=== PATIENT | female | born 1985 | race Caucasian/White ===

== ENCOUNTER 2017-05-02 16:39 | Inpatient (IN) ==
[2017-05-02 17:36] LABS: Basophils % 0.4 % (0.0-0.8); Eosinophils % 0.3 % (0.00-10.9); Hemoglobin 11.3 GM/DL (12.0-16.0); Immature Granulocytes % 0.3 %; Immature Granulocytes Absolute 0.02 #; Lymphocytes # 1.1 10*3/uL (1.4-4.0); Lymphocytes % 13.7 % (21.3-54.2); Mean Corpuscular HGB Conc 33.2 GM/DL (32-36); Mean Corpuscular Hemoglobin 29 PG (27-34); Mean Platelet Volume 8.8 FL (9.6-12.0); Monocytes # 0.7 10*3/uL (0.11-0.8); Neutrophils % 76.3 % (38.7-73.9); Platelet Count 192 T/CUMM (130-400); Red Blood Count 3.91 MC/CUMM (3.8-5.5); Red Cell Distribution Width 12.5 % (9.3-17.3); White Blood Count 7.9 T/CUMM (4-12)
[2017-05-02] MEDS ORDERED: ONDANSETRON 4 MG/2 ML VIAL IV STA ×2 (17:49→19:35)
[2017-05-02] MEDS ORDERED: MORPHINE 2 MG/1 ML SYRINGE IV STA ×2 (17:49→19:32)
[2017-05-02] MEDS ORDERED: MORPHINE 2 MG/1 ML SYRINGE ONE ×2 (17:50→19:18)
[2017-05-02] MEDS ORDERED: ONDANSETRON 4 MG/2 ML VIAL ONE ×2 (17:50→19:18)
[2017-05-02] MEDS ORDERED: MEPERIDINE 25 MG/1 ML VIAL IV STA ×2 (17:52→19:32)
[2017-05-02 17:53] LABS: INR 1.1; PT Patient Result 11.5 SECS; Partial Thromboplastin Time 26.8 SECS (0-40)
[2017-05-02] MEDS ORDERED: MEPERIDINE 25 MG/1 ML VIAL ONE ×2 (17:53→19:18)
[2017-05-02] MEDS ORDERED: SODIUM CHLORIDE 0.9% 1,000 ML IV STA (17:59)
[2017-05-02 18:00] LABS: Albumin 3.8 G/DL (3.4-5.0); Bilirubin,Total 0.6 MG/DL (0.2-1.0); Calcium 8.8 MG/DL (8.5-10.1); Magnesium 1.9 MG/DL (1.8-2.4); Osmolality,Calculated 278.3 MOS/KG (273-304); Potassium 2.8 MMOL/L (3.5-5.1); Total Protein 6.3 G/DL (6.4-8.3); Troponin I Only < 0.015 NG/ML (0.00-0.045)
[2017-05-02 18:46] LABS: Apearance,Urine Slightly Hazy (Clear); Bilirubin,Urine Negative (Negative); Blood, Urine Negative (Negative); Glucose,Urine (UA) Negative (Negative); Ketones,Urine 20 mg/dL (Negative); Mucus,Urine Many /LPF (Occasional); Nitrite,Urine Negative (Negative); Protein,Urine 30 MG/DL; RBC,Urine 3 /HPF (0-4); Squamous Epithelial Cell,Urine Occasional /HPF (0-10); Urine Color Amber (Yellow); Urine Specific Gravity 1.023 (1.001-1.035); WBC,Urine 4 /HPF (0-6)
[2017-05-02] MEDS ORDERED: diphenhydrAMINE 50 MG/1 ML VIAL ONE (19:27)
[2017-05-02] MEDS ORDERED: diphenhydrAMINE 50 MG/1 ML VIAL IV STA (19:33)
[2017-05-02] MEDS ORDERED: ADENOSINE 6 MG/2 ML VIAL ONE (19:47)
[2017-05-02] MEDS ORDERED: DIAZEPAM 10 MG/2 ML SYRINGE ONE (20:05)
[2017-05-02] MEDS ORDERED: DILTIAZEM 50 MG/10 ML VIAL IV STA (20:12)
[2017-05-02] MEDS ORDERED: DILTIAZEM 50 MG/10 ML VIAL IV ONE (20:14)
[2017-05-02] MEDS ORDERED: DILTIAZEM 100 MG VIAL.ADD IV ONE ×2 (20:14→20:28)
[2017-05-02] MEDS ORDERED: DILTIAZEM INJ 100 MG in SODIUM CHLORIDE 0.9% 100 ML IV SCH (20:30)
[2017-05-02 20:42] LABS: Barbiturates Screen,Urine Negative (Negative); Benzodiazepines Screen,Urine Negative (Negative); Cannabinoid Screen,Urine Positive (Negative); Opiate Screen,Urine Positive (Negative); Phencyclidine Screen,Urine Negative (Negative)
[2017-05-02] MEDS ORDERED: HYDROmorphone 2 MG/1 ML VIAL IV STA (21:01)
[2017-05-02] MEDS ORDERED: LORazepam 2 MG/1 ML VIAL IV STA (21:02)
[2017-05-02] MEDS ORDERED: LORazepam 2 MG/1 ML VIAL ONE (21:03)
[2017-05-02] MEDS ORDERED: HYDROmorphone 2 MG/1 ML VIAL ONE (21:03)
[2017-05-02] MEDS ORDERED: MIDAZOLAM 2 MG/2 ML VIAL IV STA (21:34)
[2017-05-02] MEDS ORDERED: MIDAZOLAM 2 MG/2 ML VIAL ONE (21:34)
[2017-05-02] MEDS ORDERED: LORazepam 2 MG/1 ML VIAL IV ONE (23:18)
[2017-05-02] MEDS ORDERED: LORazepam 2 MG/1 ML VIAL IV PRN (23:19)
[2017-05-03] MEDS ORDERED: SODIUM CHLORIDE 0.9% 1,000 ML IV SCH (00:30)
[2017-05-03] MEDS ORDERED: POTASSIUM CHLORIDE RIDER 10 MEQ in PREMIX 1 EACH IV PRN ×2 (00:32→14:38)
[2017-05-03] MEDS: LORazepam 2 MG/1 ML VIAL IV SCH ×2 (01:19→10:19)
[2017-05-03] MEDS: PANTOPRAZOLE 40 MG VIAL IV SCH (01:20)
[2017-05-03] MEDS: ONDANSETRON 4 MG/2 ML VIAL IV PRN ×2 (01:20→21:15)
[2017-05-03] MEDS: SODIUM CHLOR 0.9% KCL 40 MEQ 40 MEQ/1,000 ML BAG IV SCH ×3 (01:57→19:00)
[2017-05-03 04:42] LABS: Basophils % 0.3 % (0.0-0.8); Eosinophils % 0.5 % (0.00-10.9); Hematocrit 28.5 VOL% (35.7-47.0); Hemoglobin 9.6 GM/DL (12.0-16.0); Immature Granulocytes % 0.3 %; Immature Granulocytes Absolute 0.02 #; Lymphocytes # 1.3 10*3/uL (1.4-4.0); Lymphocytes % 21.5 % (21.3-54.2); Mean Corpuscular HGB Conc 33.7 GM/DL (32-36); Mean Corpuscular Hemoglobin 29 PG (27-34); Mean Corpuscular Volume 85.1 FL (87-102); Mean Platelet Volume 9.2 FL (9.6-12.0); Monocytes # 0.9 10*3/uL (0.11-0.8); Monocytes % 14.2 % (1.7-12.7); Neutrophils # 3.8 10*3/uL (1.4-7.4); Neutrophils % 63.2 % (38.7-73.9); Platelet Count 148 T/CUMM (130-400); Red Blood Count 3.35 MC/CUMM (3.8-5.5); Red Cell Distribution Width 12.6 % (9.3-17.3); White Blood Count 6.1 T/CUMM (4-12)
[2017-05-03 05:12] LABS: Albumin 3.1 G/DL (3.4-5.0); Bilirubin,Total 1.1 MG/DL (0.2-1.0); Calcium 8.4 MG/DL (8.5-10.1); Magnesium 1.6 MG/DL (1.8-2.4); Osmolality,Calculated 282.8 MOS/KG (273-304); Potassium 3.1 MMOL/L (3.5-5.1); Total Protein 5.6 G/DL (6.4-8.3)
[2017-05-03] MEDS: ENOXAPARIN 40 MG/0.4 ML SYRINGE SUBCUT SCH (06:05)
[2017-05-03 08:07] LABS: Hepatitis A Ab IgM Quant 0.15 Index; Hepatitis A Ab IgM Result Negative (Negative); Hepatitis B Core IgM Quant 0.11 Index; Hepatitis B Core IgM Result Negative (Negative); Hepatitis B Surface Ag Result Negative (Negative); Hepatitis C Virus Ab Quant 0.15 Index; Hepatitis C Virus Ab Result Negative (Negative)
[2017-05-03] MEDS ORDERED: diphenhydrAMINE CAP 50 MG CAPSULE ONE (10:30)
[2017-05-03] MEDS ORDERED: diphenhydrAMINE CAP 50 MG CAPSULE PO ONE (10:32)
[2017-05-03] MEDS ORDERED: NON-FORMULARY MEDICATION (Dextroamphetamine/Amphetamine [Adderall 30 Mg Tablet] 30 MG) PO SCH (12:30)
[2017-05-03] MEDS ORDERED: ESCITALOPRAM 20 MG PO SCH (12:30)
[2017-05-03] MEDS ORDERED: fentaNYL 100 MCG/HR PATCH TRANSDERM SCH (13:00)
[2017-05-03] MEDS ORDERED: MIDAZOLAM 2 MG/2 ML VIAL IV PRN (13:18)
[2017-05-03] MEDS: FERROUS SULFATE 325 MG TABLET PO SCH (14:04)
[2017-05-03] MEDS: ONDANSETRON 4 MG TABLET PO SCH ×2 (14:04→21:20)
[2017-05-03] MEDS: FAMOTIDINE 20 MG TABLET PO SCH ×2 (14:04→21:16)
[2017-05-03] MEDS ORDERED: MAGNESIUM SULF RIDER 2 GM in PREMIX 1 EACH IV PRN (14:27)
[2017-05-03] MEDS ORDERED: MAGNESIUM SULF RIDER 4 GM in PREMIX 1 EACH IV PRN (14:27)
[2017-05-03] MEDS: ZIPRASIDONE 20 MG/1 ML VIAL IM PRN (14:48)
[2017-05-03] MEDS: METOPROLOL SUCCINATE XL 50 MG TABLET PO SCH (14:54)
[2017-05-04] MEDS: PANTOPRAZOLE 40 MG VIAL IV SCH (00:30)
[2017-05-04] MEDS: ZIPRASIDONE 20 MG/1 ML VIAL IM PRN ×3 (02:19→21:16)
[2017-05-04] MEDS: SODIUM CHLOR 0.9% KCL 40 MEQ 40 MEQ/1,000 ML BAG IV SCH ×3 (02:20→21:14)
[2017-05-04] MEDS ORDERED: HYDROmorphone 2 MG/1 ML VIAL IV ONE (04:00)
[2017-05-04] MEDS: ENOXAPARIN 40 MG/0.4 ML SYRINGE SUBCUT SCH (06:21)
[2017-05-04] MEDS: ONDANSETRON 4 MG TABLET PO SCH ×3 (06:21→21:14)
[2017-05-04] MEDS: ONDANSETRON 4 MG/2 ML VIAL IV PRN ×3 (08:52→18:57)
[2017-05-04] MEDS ORDERED: fentaNYL 100 MCG/HR PATCH TRANSDERM SCH (09:00)
[2017-05-04] MEDS: METOPROLOL SUCCINATE XL 50 MG TABLET PO SCH (09:03)
[2017-05-04] MEDS: FAMOTIDINE 20 MG TABLET PO SCH ×2 (09:03→21:14)
[2017-05-04] MEDS: FERROUS SULFATE 325 MG TABLET PO SCH (09:03)
[2017-05-04] MEDS ORDERED: DEXTROSE 50% 25 GM/50 ML VIAL IV ONE (11:16)
[2017-05-04] MEDS ORDERED: DEXTROSE 50% 25 GM/50 ML VIAL IV PRN (11:30)
[2017-05-04] MEDS: LORazepam 2 MG/1 ML VIAL IV PRN ×2 (16:48→20:01)
[2017-05-05] MEDS: PANTOPRAZOLE 40 MG VIAL IV SCH ×2 (01:08→23:39)
[2017-05-05] MEDS: SODIUM CHLOR 0.9% KCL 40 MEQ 40 MEQ/1,000 ML BAG IV SCH ×3 (04:54→18:24)
[2017-05-05] MEDS: ONDANSETRON 4 MG TABLET PO SCH ×3 (04:55→20:58)
[2017-05-05] MEDS: LORazepam 2 MG/1 ML VIAL IV PRN ×5 (06:34→23:41)
[2017-05-05] MEDS: ONDANSETRON 4 MG/2 ML VIAL IV PRN (07:44)
[2017-05-05 07:56] LABS: Basophils % 0.7 % (0.0-0.8); Eosinophils # 0.1 10*3/uL (0.0-0.87); Eosinophils % 1.2 % (0.00-10.9); Hematocrit 29.9 VOL% (35.7-47.0); Hemoglobin 10.1 GM/DL (12.0-16.0); Immature Granulocytes % 0.5 %; Immature Granulocytes Absolute 0.02 #; Lymphocytes % 23.8 % (21.3-54.2); Mean Corpuscular HGB Conc 33.8 GM/DL (32-36); Mean Corpuscular Hemoglobin 29 PG (27-34); Mean Corpuscular Volume 87.2 FL (87-102); Mean Platelet Volume 9.3 FL (9.6-12.0); Monocytes # 0.4 10*3/uL (0.11-0.8); Monocytes % 9.3 % (1.7-12.7); Neutrophils # 2.7 10*3/uL (1.4-7.4); Neutrophils % 64.5 % (38.7-73.9); Platelet Count 179 T/CUMM (130-400); Red Blood Count 3.43 MC/CUMM (3.8-5.5); Red Cell Distribution Width 12.9 % (9.3-17.3); White Blood Count 4.2 T/CUMM (4-12)
[2017-05-05 08:25] LABS: Albumin 2.9 G/DL (3.4-5.0); Bilirubin,Total 0.5 MG/DL (0.2-1.0); Calcium 8.7 MG/DL (8.5-10.1); Magnesium 1.7 MG/DL (1.8-2.4); Phosphorous 2.8 MG/DL (2.5-4.9); Potassium 4.4 MMOL/L (3.5-5.1); Total Protein 5.3 G/DL (6.4-8.3)
[2017-05-05] MEDS: ZIPRASIDONE 20 MG/1 ML VIAL IM PRN ×2 (08:49→21:10)
[2017-05-05] MEDS ORDERED: LIDOCAINE 2% 5 ML VIAL ONE (09:24)
[2017-05-05] MEDS ORDERED: PROPOFOL 200 MG/20 ML VIAL IV ONE (09:24)
[2017-05-05] MEDS ORDERED: PHENYLEPHRINE 1 MG/10 ML SYRINGE IV ONE (09:24)
[2017-05-05] MEDS: FAMOTIDINE 20 MG TABLET PO SCH ×3 (10:00→20:58)
[2017-05-05] MEDS: METOPROLOL SUCCINATE XL 50 MG TABLET PO SCH (10:00)
[2017-05-05] MEDS: FERROUS SULFATE 325 MG TABLET PO SCH (10:00)
[2017-05-05] MEDS ORDERED: ONDANSETRON 4 MG/2 ML VIAL IV ONE (10:04)
[2017-05-05] MEDS ORDERED: ONDANSETRON 4 MG/2 ML VIAL ONE (10:05)
[2017-05-05] MEDS: DIVALPROEX ER 500 MG TABLET PO SCH (20:58)
[2017-05-05] MEDS: TEMAZEPAM 15 MG CAPSULE PO PRN (21:09)
[2017-05-06] MEDS: SODIUM CHLOR 0.9% KCL 40 MEQ 40 MEQ/1,000 ML BAG IV SCH ×3 (05:36→23:47)
[2017-05-06] MEDS: ONDANSETRON 4 MG TABLET PO SCH ×3 (05:36→20:42)
[2017-05-06] MEDS: ENOXAPARIN 40 MG/0.4 ML SYRINGE SUBCUT SCH (06:17)
[2017-05-06 06:36] LABS: Basophils % 0.9 % (0.0-0.8); Eosinophils # 0.1 10*3/uL (0.0-0.87); Eosinophils % 1.6 % (0.00-10.9); Hematocrit 32.2 VOL% (35.7-47.0); Hemoglobin 10.7 GM/DL (12.0-16.0); Immature Granulocytes % 0.6 %; Immature Granulocytes Absolute 0.02 #; Lymphocytes # 1.4 10*3/uL (1.4-4.0); Lymphocytes % 43.6 % (21.3-54.2); Mean Corpuscular HGB Conc 33.2 GM/DL (32-36); Mean Corpuscular Hemoglobin 29 PG (27-34); Mean Corpuscular Volume 87.3 FL (87-102); Mean Platelet Volume 9.2 FL (9.6-12.0); Monocytes # 0.4 10*3/uL (0.11-0.8); Monocytes % 12.5 % (1.7-12.7); Neutrophils # 1.3 10*3/uL (1.4-7.4); Neutrophils % 40.8 % (38.7-73.9); Platelet Count 176 T/CUMM (130-400); Red Blood Count 3.69 MC/CUMM (3.8-5.5); Red Cell Distribution Width 12.9 % (9.3-17.3); White Blood Count 3.2 T/CUMM (4-12)
[2017-05-06 07:06] LABS: Alanine Aminotransferase 39 U/L (13-56); Albumin 2.6 G/DL (3.4-5.0); Alkaline Phosphatase 119 U/L (45-117); Aspartate Amino Transferase 33 U/L (0-37); Bilirubin,Total < 0.39 MG/DL (0.2-1.0); Blood Urea Nitrogen 3 MG/DL (7-18); Calcium 8.3 MG/DL (8.5-10.1); Glucose 97 MG/DL (74-106); Magnesium 1.8 MG/DL (1.8-2.4); Osmolality,Calculated 282.8 MOS/KG (273-304); Phosphorous 3.4 MG/DL (2.5-4.9); Potassium 4.3 MMOL/L (3.5-5.1); Sodium 144 MMOL/L (136-145); Total Protein 5.1 G/DL (6.4-8.3)
[2017-05-06 07:49] LABS: Hypochromasia Slight
[2017-05-06] MEDS: METOPROLOL SUCCINATE XL 50 MG TABLET PO SCH (09:03)
[2017-05-06] MEDS: FERROUS SULFATE 325 MG TABLET PO SCH (09:03)
[2017-05-06] MEDS: FAMOTIDINE 20 MG TABLET PO SCH ×2 (09:03→20:42)
[2017-05-06] MEDS: LORazepam 2 MG/1 ML VIAL IV PRN ×2 (10:00→13:29)
[2017-05-06] MEDS: TEMAZEPAM 15 MG CAPSULE PO PRN (20:41)
[2017-05-06] MEDS: LORazepam 1 MG TABLET PO PRN (20:41)
[2017-05-06] MEDS: oxyCODONE/ACETAMINOPHEN 5-325 MG TABLET PO PRN ×2 (20:42→23:48)
[2017-05-06] MEDS: DIVALPROEX ER 500 MG TABLET PO SCH (20:42)
[2017-05-06] MEDS: ONDANSETRON 4 MG/2 ML VIAL IV PRN (23:48)
[2017-05-06] MEDS: PANTOPRAZOLE 40 MG VIAL IV SCH (23:54)
[2017-05-07] MEDS: LORazepam 2 MG/1 ML VIAL IV PRN (02:45)
[2017-05-07] MEDS: oxyCODONE/ACETAMINOPHEN 5-325 MG TABLET PO PRN ×3 (02:50→09:26)
[2017-05-07] MEDS: ONDANSETRON 4 MG TABLET PO SCH (05:17)
[2017-05-07] MEDS: ENOXAPARIN 40 MG/0.4 ML SYRINGE SUBCUT SCH (05:18)
[2017-05-07 07:57] VITALS: BP 117/87
[2017-05-07] MEDS: LORazepam 1 MG TABLET PO PRN (09:26)
[2017-05-07] MEDS: METOPROLOL SUCCINATE XL 50 MG TABLET PO SCH (09:26)
[2017-05-07] MEDS: FAMOTIDINE 20 MG TABLET PO SCH (09:26)
[2017-05-07] MEDS: FERROUS SULFATE 325 MG TABLET PO SCH (09:26)
[2017-05-09] MEDS ORDERED: fentaNYL 50 MCG/HR PATCH TRANSDERM SCH (09:00)
== END 2017-05-07 11:14 | disposition home or self-care (01) | DRG 918 ==
LOC: EDBD → EDUNIT# → N.ED 16:39 → N.EDINP 23:04 → SUATTDRO 23:04 → N.CC 23:39 → N.5E 05-05 11:34
PROVIDERS: ATTEND Internal Medicine Nephrology

== ENCOUNTER 2021-01-24 17:05 | Observation (INO) ==
[2021-01-24] MEDS ORDERED: PANTOPRAZOLE 40 MG VIAL IV STA (18:30)
[2021-01-24] MEDS ORDERED: SODIUM CHLORIDE 0.9% 1,000 ML IV STA (18:30)
[2021-01-24] MEDS ORDERED: ONDANSETRON 4 MG/2 ML VIAL IV STA ×2 (18:30→20:28)
[2021-01-24 18:49] LABS: Basophils % 0.2 % (0.0-0.8); Eosinophils % 0.1 % (0.00-10.9); Hematocrit 38.2 VOL% (35.7-47.0); Hemoglobin 12.6 GM/DL (12.0-16.0); Immature Granulocytes % 0.4 %; Immature Granulocytes Absolute 0.05 #; Lymphocytes # 1.3 10*3/uL (1.4-4.0); Lymphocytes % 11.2 % (21.3-54.2); Mean Corpuscular Volume 87.6 FL (87-102); Mean Platelet Volume 8.8 FL (9.6-12.0); Monocytes % 4.9 % (1.7-12.7); Neutrophils % 83.2 % (38.7-73.9); Platelet Count 229 T/CUMM (130-400); Red Blood Count 4.36 MC/CUMM (3.8-5.5); Red Cell Distribution Width 12.1 % (9.3-17.3); White Blood Count 11.1 T/CUMM (4-12)
[2021-01-24] MEDS ORDERED: HYDROmorphone 2 MG/1 ML VIAL IV ONE (19:08)
[2021-01-24 19:13] LABS: Alanine Aminotransferase 19 U/L (13-56); Albumin 4.6 G/DL (3.4-5.0); Alkaline Phosphatase 138 U/L (45-117); Amylase 56 U/L (25-115); Aspartate Amino Transferase 19 U/L (0-37); Blood Urea Nitrogen 17 MG/DL (7-18); Calcium 9.8 MG/DL (8.5-10.1); Carbon Dioxide 24 MMOL/L (21-32); Estimated Glom Filtration Rate 103 ML/MIN; Glucose 93 MG/DL (74-106); Osmolality,Calculated 287.8 MOS/KG (273-304); Potassium 4.1 MMOL/L (3.5-5.1); Sodium 144 MMOL/L (136-145); Total Protein 8.2 G/DL (6.4-8.2)
[2021-01-24] MEDS ORDERED: ACETAMINOPHEN 500 MG TABLET ONE ×2 (20:21→20:26)
[2021-01-24] MEDS ORDERED: ACETAMINOPHEN 500 MG TABLET PO STA (20:28)
[2021-01-24 21:05] LABS: Bilirubin,Urine Negative (Negative); Blood, Urine Negative (Negative); Glucose,Urine (UA) Negative (Negative); Ketones,Urine 80 mg/dL (Negative); Mucus,Urine Occasional /LPF (Occasional); Nitrite,Urine Negative (Negative); Protein,Urine Negative; RBC,Urine 1 /HPF (0-4); Squamous Epithelial Cell,Urine Occasional /HPF (0-10); Urine Appearance CLEAR (Clear); Urine Color Yellow (Yellow); Urine Specific Gravity 1.021 (1.001-1.035); Urine Urobilinogen < 2.0 EU/DL (0.2-1.0)
[2021-01-24 21:24] LABS: Barbiturates Screen,Urine Negative (Negative); Benzodiazepines Screen,Urine Negative (Negative); Cannabinoid Screen,Urine Negative (Negative); Opiate Screen,Urine Positive (Negative); Phencyclidine Screen,Urine Negative (Negative)
[2021-01-25] MEDS ORDERED: DEXTROSE 50% 25 GM/50 ML VIAL IV PRN (00:31)
[2021-01-25] MEDS ORDERED: GLUCAGON 1 MG VIAL IM PRN (00:31)
[2021-01-25] MEDS ORDERED: diphenhydrAMINE CAP 25 MG CAPSULE PO PRN (00:32)
[2021-01-25] MEDS ORDERED: traZODone 50 MG TABLET PO PRN (00:32)
[2021-01-25] MEDS ORDERED: ENOXAPARIN 40 MG/0.4 ML SYRINGE SUBCUT SCH (01:00)
[2021-01-25] MEDS ORDERED: SODIUM CHLORIDE 0.9% 1,000 ML IV SCH (01:00)
[2021-01-25] MEDS: HYDROmorphone 2 MG/1 ML VIAL IV PRN ×10 (01:01→23:47)
[2021-01-25] MEDS: ONDANSETRON 4 MG/2 ML VIAL IV PRN ×2 (02:03→17:25)
[2021-01-25 05:20] LABS: Basophils % 0.4 % (0.0-0.8); Eosinophils % 0.5 % (0.00-10.9); Hematocrit 34.8 VOL% (35.7-47.0); Hemoglobin 11.3 GM/DL (12.0-16.0); Immature Granulocytes % 0.3 %; Immature Granulocytes Absolute 0.02 #; Lymphocytes # 2.2 10*3/uL (1.4-4.0); Lymphocytes % 29.4 % (21.3-54.2); Mean Corpuscular HGB Conc 32.5 GM/DL (32-36); Mean Corpuscular Volume 89.7 FL (87-102); Mean Platelet Volume 9.1 FL (9.6-12.0); Monocytes % 9.3 % (1.7-12.7); Neutrophils % 60.1 % (38.7-73.9); Platelet Count 206 T/CUMM (130-400); Red Blood Count 3.88 MC/CUMM (3.8-5.5); Red Cell Distribution Width 12.3 % (9.3-17.3); White Blood Count 7.4 T/CUMM (4-12)
[2021-01-25 05:43] LABS: Albumin 3.9 G/DL (3.4-5.0); Bilirubin,Total 0.8 MG/DL (0.20-1.00); Calcium 9.2 MG/DL (8.5-10.1); Osmolality,Calculated 288.6 MOS/KG (273-304); Potassium 3.5 MMOL/L (3.5-5.1); Thyroid Stimulating Hormone 0.346 uIU/ml (0.358-3.74); Total Protein 7.4 G/DL (6.4-8.2)
[2021-01-25] MEDS: LACTATED RINGERS 1,000 ML IV SCH ×2 (11:22→19:34)
[2021-01-25] MEDS: PANTOPRAZOLE 40 MG VIAL IV SCH ×2 (11:23→21:22)
[2021-01-25] MEDS: SERTRALINE 50 MG TABLET PO SCH (11:26)
[2021-01-25] MEDS: tiZANidine 4 MG TABLET PO PRN ×2 (11:57→21:21)
[2021-01-25] MEDS: TEMAZEPAM 15 MG CAPSULE PO PRN (21:21)
[2021-01-25] MEDS: METHADONE 10 MG TABLET PO SCH (21:22)
[2021-01-26] MEDS: HYDROmorphone 2 MG/1 ML VIAL IV PRN ×3 (02:30→07:50)
[2021-01-26] MEDS: LACTATED RINGERS 1,000 ML IV SCH ×3 (02:31→14:57)
[2021-01-26] MEDS: ONDANSETRON 4 MG/2 ML VIAL IV PRN ×2 (04:52→12:14)
[2021-01-26 05:44] LABS: Basophils % 0.3 % (0.0-0.8); Eosinophils # 0.1 10*3/uL (0.0-0.87); Eosinophils % 1.5 % (0.00-10.9); Hemoglobin 9.6 GM/DL (12.0-16.0); Immature Granulocytes % 0.6 %; Immature Granulocytes Absolute 0.02 #; Lymphocytes # 1.5 10*3/uL (1.4-4.0); Lymphocytes % 44.7 % (21.3-54.2); Mean Corpuscular Volume 90.4 FL (87-102); Mean Platelet Volume 9.1 FL (9.6-12.0); Monocytes % 8.8 % (1.7-12.7); Neutrophils % 44.1 % (38.7-73.9); Red Blood Count 3.32 MC/CUMM (3.8-5.5); Red Cell Distribution Width 12.4 % (9.3-17.3)
[2021-01-26 05:45] LABS: Calcium 8.9 MG/DL (8.5-10.1); Osmolality,Calculated 283.7 MOS/KG (273-304); Potassium 3.4 MMOL/L (3.5-5.1)
[2021-01-26 05:47] LABS: Platelet Count 120 T/CUMM (130-400); White Blood Count 3.3 T/CUMM (4-12)
[2021-01-26 05:56] LABS: Free T4 (Free Thyroxine) 1.23 NG/DL (0.76-1.46)
[2021-01-26 06:00] LABS: Band Neutrophils 1 % (0-10); Lymphocytes 49 % (20-55); Platelet Estimate Normal; Segmented Neutrophils 44 % (50-85); Total Cells Counted 100
[2021-01-26] MEDS ORDERED: fentaNYL 100 MCG/2 ML VIAL ONE (10:31)
[2021-01-26] MEDS: DEXTROSE 5% 1,000 ML IV SCH (11:06)
[2021-01-26] MEDS ORDERED: LIDOCAINE 2% 5 ML VIAL ONE (13:06)
[2021-01-26] MEDS ORDERED: propofoL 200 MG/20 ML VIAL IV ONE (13:06)
[2021-01-26] MEDS: PANTOPRAZOLE 40 MG VIAL IV SCH ×2 (13:17→21:48)
[2021-01-26] MEDS: HYDROmorphone 2 MG TABLET PO PRN ×2 (13:19→19:48)
[2021-01-26] MEDS: METHADONE 10 MG TABLET PO SCH ×2 (13:20→21:48)
[2021-01-26] MEDS: tiZANidine 4 MG TABLET PO PRN (13:21)
[2021-01-26] MEDS: SERTRALINE 50 MG TABLET PO SCH (13:21)
[2021-01-26] MEDS: [UNRECOGNIZED DRUG - OTHER] PO SCH (13:21)
[2021-01-26] MEDS: POTASSIUM CHLORIDE RIDER 10 MEQ/100 ML PREMIX IV PRN ×2 (15:16→17:09)
[2021-01-26] MEDS: TEMAZEPAM 15 MG CAPSULE PO PRN (21:52)
[2021-01-27] MEDS: LACTATED RINGERS 1,000 ML IV SCH ×4 (01:27→13:19)
[2021-01-27] MEDS: POTASSIUM CHLORIDE RIDER 10 MEQ/100 ML PREMIX IV PRN (01:46)
[2021-01-27] MEDS: ONDANSETRON 4 MG/2 ML VIAL IV PRN ×2 (01:47→07:41)
[2021-01-27] MEDS: HYDROmorphone 2 MG TABLET PO PRN ×3 (01:47→15:04)
[2021-01-27] MEDS: tiZANidine 4 MG TABLET PO PRN ×2 (01:48→15:26)
[2021-01-27 05:40] LABS: Basophils % 0.3 % (0.0-0.8); Eosinophils # 0.1 10*3/uL (0.0-0.87); Eosinophils % 0.8 % (0.00-10.9); Hematocrit 29.7 VOL% (35.7-47.0); Immature Granulocytes % 0.2 %; Immature Granulocytes Absolute 0.01 #; Lymphocytes # 1.8 10*3/uL (1.4-4.0); Lymphocytes % 27.9 % (21.3-54.2); Mean Corpuscular HGB Conc 33.7 GM/DL (32-36); Mean Corpuscular Volume 88.7 FL (87-102); Mean Platelet Volume 9.4 FL (9.6-12.0); Monocytes % 7.3 % (1.7-12.7); Neutrophils % 63.5 % (38.7-73.9); Platelet Count 133 T/CUMM (130-400); Red Blood Count 3.35 MC/CUMM (3.8-5.5); Red Cell Distribution Width 12.2 % (9.3-17.3); White Blood Count 6.6 T/CUMM (4-12)
[2021-01-27 06:14] LABS: Calcium 8.6 MG/DL (8.5-10.1); Osmolality,Calculated 282.8 MOS/KG (273-304); Potassium 3.6 MMOL/L (3.5-5.1)
[2021-01-27] MEDS: METHADONE 10 MG TABLET PO SCH (08:36)
[2021-01-27] MEDS: [UNRECOGNIZED DRUG - OTHER] PO SCH (08:37)
[2021-01-27] MEDS: PANTOPRAZOLE 40 MG VIAL IV SCH (08:38)
[2021-01-27] MEDS: SERTRALINE 50 MG TABLET PO SCH (08:38)
[2021-01-27] MEDS: SUCRALFATE 1 GM/10 ML UDCUP PO SCH ×2 (12:40→17:10)
[2021-01-27] MEDS: DEXTROSE 5% 1,000 ML IV SCH (13:19)
[2021-01-27 15:56] VITALS: BP 164/89
== END 2021-01-27 18:08 | disposition home or self-care (01) ==
LOC: EDBD → EDUNIT# → N.ED 17:05 → N.EDINP 17:05 → N.4E 01-25 02:06
PROVIDERS: ADMIT Internal Medicine; ATTEND Internal Medicine

== ENCOUNTER 2021-02-21 16:46 | Observation (INO) ==
[2021-02-21] MEDS ORDERED: LORazepam 2 MG/1 ML VIAL IV STA ×3 (17:37→23:55)
[2021-02-21] MEDS ORDERED: diphenhydrAMINE 50 MG/1 ML VIAL IV STA (17:37)
[2021-02-21] MEDS ORDERED: SODIUM CHLORIDE 0.9% 500 ML IV STA (17:37)
[2021-02-21] MEDS ORDERED: diphenhydrAMINE 50 MG/1 ML VIAL ONE (17:43)
[2021-02-21 17:44] LABS: Basophils % 0.3 % (0.0-0.8); Eosinophils % 0.1 % (0.00-10.9); Hematocrit 39.4 VOL% (35.7-47.0); Immature Granulocytes % 0.5 %; Immature Granulocytes Absolute 0.07 #; Lymphocytes % 14.6 % (21.3-54.2); Mean Corpuscular Volume 87.8 FL (87-102); Mean Platelet Volume 9.4 FL (9.6-12.0); Monocytes % 4.9 % (1.7-12.7); Neutrophils % 79.6 % (38.7-73.9); Platelet Count 279 T/CUMM (130-400); Red Blood Count 4.49 MC/CUMM (3.8-5.5); Red Cell Distribution Width 12.2 % (9.3-17.3); White Blood Count 13.8 T/CUMM (4-12)
[2021-02-21] MEDS ORDERED: SODIUM CHLORIDE 0.9% 1,000 ML IV STA (18:32)
[2021-02-21 21:10] LABS: Albumin 4.5 G/DL (3.4-5.0); Bilirubin,Total 0.6 MG/DL (0.20-1.00); Calcium 10.1 MG/DL (8.5-10.1); Osmolality,Calculated 288.1 MOS/KG (273-304); Potassium 3.4 MMOL/L (3.5-5.1); Total Protein 8.8 G/DL (6.4-8.2)
[2021-02-21] MEDS ORDERED: METOPROLOL TARTRATE 5 MG/5 ML VIAL IV STA (22:20)
[2021-02-21] MEDS ORDERED: HYDROmorphone 2 MG/1 ML VIAL IV STA (22:35)
[2021-02-22] MEDS ORDERED: SODIUM CHLORIDE 0.9% 1,000 ML IV STA (00:19)
[2021-02-22] MEDS ORDERED: HYDROmorphone 2 MG/1 ML VIAL IV STA (00:21)
[2021-02-22] MEDS ORDERED: GLUCAGON 1 MG VIAL IM PRN (02:49)
[2021-02-22] MEDS ORDERED: hydrALAZINE 20 MG/1 ML VIAL IV PRN (02:49)
[2021-02-22] MEDS ORDERED: MAGNESIUM SULF RIDER 2 GM/50 ML PREMIX IV PRN (02:49)
[2021-02-22] MEDS ORDERED: ACETAMINOPHEN 325 MG TABLET PO PRN (02:49)
[2021-02-22] MEDS ORDERED: POTASSIUM CHLORIDE RIDER 10 MEQ/100 ML PREMIX IV PRN (02:49)
[2021-02-22] MEDS ORDERED: DEXTROSE 50% 25 GM/50 ML VIAL IV PRN (02:49)
[2021-02-22] MEDS ORDERED: MAGNESIUM SULF RIDER 4 GM/100 ML PREMIX IV PRN (02:49)
[2021-02-22] MEDS ORDERED: SODIUM BICARBONATE 50 MEQ/50 ML VIAL IV STA (03:46)
[2021-02-22] MEDS: ONDANSETRON 4 MG/2 ML VIAL IV PRN ×4 (04:05→20:56)
[2021-02-22] MEDS: HYDROmorphone 2 MG/1 ML VIAL IV PRN ×5 (04:05→17:49)
[2021-02-22] MEDS: LORazepam 2 MG/1 ML VIAL IV PRN ×3 (04:05→20:57)
[2021-02-22] MEDS: LACTATED RINGERS 1,000 ML IV SCH ×3 (04:11→23:26)
[2021-02-22] MEDS: PANTOPRAZOLE 40 MG VIAL IV SCH ×3 (04:15→20:57)
[2021-02-22] MEDS: ENOXAPARIN 40 MG/0.4 ML SYRINGE SUBCUT SCH (04:15)
[2021-02-22 04:22] LABS: Basophils % 0.1 % (0.0-0.8); Eosinophils % 0.1 % (0.00-10.9); Hematocrit 33.1 VOL% (35.7-47.0); Immature Granulocytes % 0.5 %; Immature Granulocytes Absolute 0.05 #; Lymphocytes # 0.9 10*3/uL (1.4-4.0); Lymphocytes % 8.2 % (21.3-54.2); Mean Corpuscular HGB Conc 33.2 GM/DL (32-36); Mean Corpuscular Volume 86.9 FL (87-102); Mean Platelet Volume 9.1 FL (9.6-12.0); Neutrophils % 85.1 % (38.7-73.9); Platelet Count 208 T/CUMM (130-400); Red Blood Count 3.81 MC/CUMM (3.8-5.5); Red Cell Distribution Width 12.6 % (9.3-17.3)
[2021-02-22 04:38] LABS: Bilirubin,Total 0.6 MG/DL (0.20-1.00); Calcium 9.7 MG/DL (8.5-10.1); Osmolality,Calculated 284.8 MOS/KG (273-304); Potassium 3.7 MMOL/L (3.5-5.1); Total Protein 7.7 G/DL (6.4-8.2)
[2021-02-22 06:37] LABS: Bacteria,Urine Occasional /HPF (Few); Bilirubin,Urine Negative (Negative); Blood, Urine Negative (Negative); Glucose,Urine (UA) 150 mg/dL (Negative); Hyaline Casts,Urine 7 /LPF (0-3); Ketones,Urine 5 mg/dL (Negative); Mucus,Urine Moderate /LPF (Occasional); Nitrite,Urine Negative (Negative); Protein,Urine 100 MG/DL; RBC,Urine 2 /HPF (0-4); Squamous Epithelial Cell,Urine Occasional /HPF (0-10); Urine Appearance CLOUDY (Clear); Urine Color Amber (Yellow); Urine Specific Gravity 1.021 (1.001-1.035); Urine Urobilinogen < 2.0 EU/DL (0.2-1.0)
[2021-02-22] MEDS: INSULIN REGULAR 100 UNIT/ML SUBCUT SCH ×2 (10:20→16:34)
[2021-02-22] MEDS ORDERED: METOPROLOL TARTRATE 5 MG/5 ML VIAL IV ONE (12:22)
[2021-02-22] MEDS: METOPROLOL TARTRATE 25 MG TABLET PO SCH (20:54)
[2021-02-22] MEDS: HYDROmorphone 2 MG TABLET PO PRN (20:55)
[2021-02-22] MEDS: METHADONE 10 MG TABLET PO SCH (21:17)
[2021-02-23] MEDS: LORazepam 2 MG/1 ML VIAL IV PRN ×6 (00:31→21:35)
[2021-02-23] MEDS: ONDANSETRON 4 MG/2 ML VIAL IV PRN ×5 (00:32→21:35)
[2021-02-23] MEDS: HYDROmorphone 2 MG TABLET PO PRN ×3 (03:29→21:34)
[2021-02-23] MEDS: LACTATED RINGERS 1,000 ML IV SCH ×5 (05:33→18:21)
[2021-02-23] MEDS: ENOXAPARIN 40 MG/0.4 ML SYRINGE SUBCUT SCH (09:15)
[2021-02-23] MEDS: INSULIN REGULAR 100 UNIT/ML SUBCUT SCH ×2 (09:15→16:11)
[2021-02-23] MEDS: METHADONE 10 MG TABLET PO SCH ×2 (09:15→21:34)
[2021-02-23] MEDS: PANTOPRAZOLE 40 MG VIAL IV SCH ×2 (09:16→21:35)
[2021-02-23] MEDS: METOPROLOL TARTRATE 25 MG TABLET PO SCH (09:17)
[2021-02-23] MEDS ORDERED: GLUCAGON 1 MG VIAL IM PRN (10:07)
[2021-02-23] MEDS ORDERED: DEXTROSE 50% 25 GM/50 ML VIAL IV PRN (10:07)
[2021-02-23] MEDS ORDERED: tiZANidine 4 MG TABLET PO PRN (12:22)
[2021-02-23] MEDS: ALVIMOPAN 12 MG CAPSULE PO SCH ×2 (13:41→21:34)
[2021-02-23] MEDS ORDERED: METOPROLOL SUCCINATE XL 25 MG TABLET PO ONE (16:00)
[2021-02-23] MEDS ORDERED: TEMAZEPAM 15 MG CAPSULE PO SCH (21:00)
[2021-02-24] MEDS: ONDANSETRON 4 MG/2 ML VIAL IV PRN (01:39)
[2021-02-24] MEDS: LORazepam 2 MG/1 ML VIAL IV PRN ×2 (01:39→09:07)
[2021-02-24] MEDS: LACTATED RINGERS 1,000 ML IV SCH ×2 (05:55→09:48)
[2021-02-24 07:54] VITALS: BP 96/74
[2021-02-24] MEDS: METHADONE 10 MG TABLET PO SCH (08:59)
[2021-02-24] MEDS: ALVIMOPAN 12 MG CAPSULE PO SCH (08:59)
[2021-02-24] MEDS ORDERED: METOPROLOL SUCCINATE XL 25 MG TABLET PO SCH (09:00)
[2021-02-24] MEDS: PANTOPRAZOLE 40 MG VIAL IV SCH (09:00)
[2021-02-24] MEDS: ENOXAPARIN 40 MG/0.4 ML SYRINGE SUBCUT SCH (09:00)
[2021-02-24] MEDS: INSULIN REGULAR 100 UNIT/ML SUBCUT SCH (09:04)
== END 2021-02-24 11:52 | disposition home or self-care (01) ==
LOC: EDBD → EDUNIT# → N.EDINP 16:46 → N.ED 16:46 → N.EDINP 02-22 07:46 → N.TELEN 02-22 08:03
PROVIDERS: ADMIT Hospitalist; ATTEND Hospitalist